=== PATIENT | female | born 1965 | race Caucasian/White ===

== ENCOUNTER 2018-10-23 16:27 | Outpatient (CLI) | payer OTHER | END 2018-10-23 16:46 | disposition home or self-care (01) | LOC: LAB 16:27 | DX: N30.00 Acute cystitis without hematuria (principal) ==

== ENCOUNTER 2019-02-22 09:53 | Outpatient (CLI) | payer OTHER | END 2019-02-22 09:55 | disposition home or self-care (01) | LOC: TOM 09:53 | DX: N39.0 Urinary tract infection, site not specified (principal); N13.4 Hydroureter ==

== ENCOUNTER 2019-02-22 12:04 | Outpatient (CLI) | payer OTHER | END 2019-02-22 12:11 | disposition home or self-care (01) | LOC: LAB 12:04 | DX: N30.00 Acute cystitis without hematuria (principal) ==

== ENCOUNTER 2020-07-08 10:55 | Day surgery (SDC) | payer OTHER ==
[~2020-07-08 10:55] MED LIST: AMLODIPINE BESYL5 MG PO; SYNJARDY 12.5-1 EACH PO; TOPROL XL50 M1 PO; ZESTRIL5 MG PO; ZOCOR40 MG PO
== END 2020-07-08 18:30 | disposition home or self-care (01) ==
LOC: CIR.AMB 10:55
PROVIDERS: ATTEND Urology
DX: N13.5 Crossing vessel and stricture of ureter without hydronephrosis (principal); Z20.828 Contact with and (suspected) exposure to other viral communicable diseases

== ENCOUNTER 2020-10-14 12:47 | Outpatient (CLI) | payer OTHER | END 2020-10-14 12:58 | disposition home or self-care (01) | LOC: SONOGRAMA 12:47 | PROVIDERS: ATTEND Urology | DX: Q61.8 Other cystic kidney diseases (principal) ==

== ENCOUNTER 2020-10-20 14:47 | Outpatient (CLI) | payer OTHER | END 2020-10-20 15:00 | disposition home or self-care (01) | LOC: LAB 14:47 | PROVIDERS: ATTEND Urology | DX: N30.00 Acute cystitis without hematuria (principal) ==

== ENCOUNTER → 2021-12-27 15:04 | Outpatient (CLI) | payer OTHER | END | disposition home or self-care (01) | LOC: LAB 15:04 | PROVIDERS: ATTEND Urology | DX: N30.00 Acute cystitis without hematuria (principal) ==

== ENCOUNTER 2022-01-04 10:08 | Outpatient (CLI) | payer OTHER | END 2022-01-04 10:10 | disposition home or self-care (01) | LOC: LAB 10:08 | PROVIDERS: ATTEND Urology | DX: N13.4 Hydroureter (principal) ==

== ENCOUNTER 2022-01-04 10:46 | Outpatient (CLI) | payer OTHER | END 2022-01-04 10:54 | disposition home or self-care (01) | LOC: TOM 10:46 | PROVIDERS: ATTEND Urology | DX: N39.0 Urinary tract infection, site not specified (principal); N13.4 Hydroureter ==

== ENCOUNTER 2022-01-10 14:25 | Outpatient (CLI) | payer OTHER | END 2022-01-10 14:29 | disposition home or self-care (01) | LOC: LAB 14:25 | PROVIDERS: ATTEND Urology | DX: N30.00 Acute cystitis without hematuria (principal) ==

== ENCOUNTER 2022-02-24 10:36 | Outpatient (CLI) | payer OTHER | END 2022-02-24 10:38 | disposition home or self-care (01) | LOC: LAB 10:36 | PROVIDERS: ATTEND Urology | DX: N30.00 Acute cystitis without hematuria (principal); I11.9 Hypertensive heart disease without heart failure ==

== ENCOUNTER 2022-03-01 08:15 | Inpatient (IN) | payer OTHER ==
[~2022-03-01] VITALS: Ht 157.5 cm; Wt 65.8 kg
== END 2022-03-04 10:42 | disposition home or self-care (01) | DRG 661 ==
LOC: O/R 03-02 05:39 → SURH 03-02 07:00 → SURG 03-02 15:07
PROVIDERS: ADMIT Urology; ATTEND Urology
PROC: 0T160ZB Bypass Right Ureter to Bladder, Open Approach (ICD-10-PCS; principal; 2022-03-02 07:00)
DX: N39.0 Urinary tract infection, site not specified (principal); N13.4 Hydroureter; I10 Essential (primary) hypertension

== ENCOUNTER 2022-03-17 09:22 | Outpatient (CLI) | payer OTHER | END 2022-03-17 09:26 | disposition home or self-care (01) | LOC: RX STUDY 09:22 | PROVIDERS: ATTEND Urology | DX: R10.2 Pelvic and perineal pain (principal) ==

== ENCOUNTER 2022-04-07 09:43 | Outpatient (CLI) | payer OTHER | END 2022-04-07 09:44 | disposition home or self-care (01) | LOC: LAB 09:43 | PROVIDERS: ATTEND Urology | DX: N30.00 Acute cystitis without hematuria (principal) ==